=== PATIENT | male | born 1945 | race Caucasian/White ===

== ENCOUNTER → 2025-03-29 12:18 | Outpatient (REF) | payer OTHER, SELFPAY | LOC: RAD 12:18 | PROVIDERS: ATTENDING PHYSICIAN Student in an Organized Health Care Education/Training Program; FAMILY PHYSICIAN Family Medicine | DX: I35.0 Nonrheumatic aortic (valve) stenosis (principal) | CPT/HCPCS: 74174; 75572; Q9967 ==

== ENCOUNTER → 2025-04-13 13:16 | Outpatient (REF) | payer OTHER, SELFPAY | LOC: RAD 13:16 | PROVIDERS: ATTENDING PHYSICIAN Nurse Practitioner; FAMILY PHYSICIAN Family Medicine | DX: H53.9 Unspecified visual disturbance (principal) | CPT/HCPCS: 70450; 93880 ==

== ENCOUNTER 2025-04-15 11:06 | Day surgery (SDC) | payer OTHER, SELFPAY ==
[2025-04-15] VITALS (12 sets, daily range): BP systolic 110–141; BP diastolic 61–92; BMI 29.9
[2025-04-15] MEDS: NSS 283 ML IV (12:31)
--- NOTE | 2025-04-15 13:45 | ITS.CL.PN ---
Alumni Coordinator - Procedure Note
Procedure
Procedure Note:
CARDIAC CATHETERIZATION REPORT
Date of Procedure: 04/15/2025
Referring: Dr. Modesto Mills MD
Indication: severe symptomatic aortic valve stenosis pending TAVR with anginal symptoms
PROCEDURE(S)
1. bypass graft angiography
2. coronary angiography
ACCESS: 6F left radial artery (closure: radial band)
CATHETERS
1. 6F DIAMOND
2. 6F JR4
3. 6F JL4
4. 6F AR1
5. 6F AL1
MODERATE SEDATION: 40 minutes of moderate sedation was utilized. An independent infertility medical assistant was present to assist with and help manage the patient's level of consciousness and physiologic status.
CORONARY ANGIOGRAPHY
Dominance: Right
LM: large vessel with mild diffuse disease
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 The mid to distal vessel is filled via the BONILLA. The aneurysm is unchanged in appearance from recent angiography.
Ramus: moderate caliber branching vessel. There is a focal 50% stenosis in the superior arm that is stable from prior angiography. The inferior arm is supplied via the SVG with brisk competitive flow visualized.
LCx: Moderate caliber vessel giving rise to a moderate caliber branching OM1 and small OM 2. There are mild luminal irregularities only.
RCA: moderate caliber vessel giving rise to a small RPDA and several small RPL branches. There are serial ~40-50% focal stenoses in the mid-vessel that are unchanged from prior angiography 05/2024. There are otherwise trivial luminal irregularities
only.
BYPASS GRAFT ANGIOGRAPHY:
BONILLA-LAD: the BONILLA is taken as a pedicle and forms an anastomosis with the mid-LAD providing brisk antegrade flow to the apex.
SVG-diag: small graft that forms a patent anastomosis with the diagonal branch providing retrograde flow back to the site of the LAD aneurysm.
SVG-ramus: large graft that forms a patent anastomosis with the midportion of the inferior branch of the ramus providing brisk antegrade and retrograde flow.
RADIATION: dose 401 mGy; DAP 26.1 Gy*cm2; fluoroscopy time 8.0 min
CONCLUSIONS
1. Coronary angiography as described with patent bypass grafts and unchanged appearance of the RCA compared to 06/01 angiography.
2. There does not appear to be an obstructive coronary lesion that would explain the patient's anginal symptoms which are most likely attributable to his critical aortic valve stenosis
RECOMMENDATIONS
1. Aggressive secondary prevention of coronary artery disease
2. Proceed promptly with TAVR given critically elevated gradients and symptoms
Signed: Eusebio Del Valle MD, PhD
== END 2025-04-15 17:00 | disposition home or self-care (01) ==
LOC: CATH 11:06
PROVIDERS: ATTENDING PHYSICIAN Student in an Organized Health Care Education/Training Program; FAMILY PHYSICIAN Family Medicine; OTHER PHYSICIAN Internal Medicine Interventional Cardiology
DX: I35.0 Nonrheumatic aortic (valve) stenosis (principal); I25.10 Atherosclerotic heart disease of native coronary artery without angina pectoris; Z95.1 Presence of aortocoronary bypass graft; Z79.899 Other long term (current) drug therapy; I10 Essential (primary) hypertension; E78.5 Hyperlipidemia, unspecified
CPT/HCPCS: 99152; 99153; 93455; C1894; Q9967

== ENCOUNTER 2025-05-19 09:18 | Inpatient (IN) | payer OTHER, SELFPAY ==
[2025-05-12 12:19] VITALS: BMI 31.2
[2025-05-12 13:04] LABS: Urine Character Clear (Clear)
[2025-05-12 13:13] LABS: INR 0.93; PT 13.0 Sec (11.4-14.6)
[2025-05-12 13:16] LABS: ALT (SGPT) 37 U/L (0-50); AST (SGOT) 30 U/L (17-59); Albumin 4.8 g/dl (3.5-5.0); Alkaline Phosphatase 94 U/L (38-126); Blood Urea Nitrogen 14 mg/dl (9-20); Calcium 9.6 mg/dl (8.4-10.2); Carbon Dioxide 28 mmol/L (22-30); Chloride 104 mmol/L (98-107); Estimated Creatinine Clearance 67 ml/min; Glucose 100 mg/dl (70-99); Potassium 4.8 mmol/L (3.5-5.1); Sodium 138 mmol/L (135-145); Total Protein 7.2 g/dl (6.3-8.2); eGFR > 60.00
--- NOTE | 2025-05-12 13:45 | CM ---
Chart reviewed. Met with the patient in PAT. Reviewed preoperative and postoperative teaching, along with showering guidelines. Gave patient 2 soaps. Patient is independent of ADLS, lives alone in a 2 STH, 13 JOSSIE, 0 DME. Patient's daughter is
traveling in from [place] to stay with the patient. Patient's stepdaughter lives behind him. Patient may be outside driving radius for CT Transitional RN. Plan is for the patient to return home with CT Transitional RN or follow up phone call.
--- NOTE | 2025-05-12 13:54 | HPS.HSE ---
Family Physician
-
Family Physician: Mario Jefferson
Blanking Press Operator: Dr. Homer Mcfarland
Chief Complaint
-
pre-operative history and physical
History of Present Illness
Mr. Caballero is a 79-year-old man with past medical history significant for coronary artery disease status post CABGx3 (2019 Dr. Trudy Nielson at [place], [facility], rad-diag, rad-RPDA, 2019) with patent grafts 05/2024, COPD, hypertension, hyperlipidemia,
and aortic valve stenosis.He has been followed for moderate to severe aortic stenosis by Dr. Mcfarland and recently had repeat echocardiogram which demonstrated severely elevated gradients- PG/M/71, JAIDEN: 0.6, trivial AI. He has also had progression
of symptoms with noted dyspnea on exertion and chest tightness with extended walking or climbing flights of stairs. Symptoms are reminiscent of what he felt prior to CABG.��He had his CT TAVR completed on 03/29/2025 and cardiac cath with Dr. Maloney
Ivon on 04/15/2025 which was unchanged from his previous one. He was reviewed by the structural heart team and the decision was to proceed with TF-TAVR.
Medical History
Past Medical History
Past Medical History: Reports Asthma, CAD (h/o CABG x3 2018), HTN, Hypercholesterolemia, Valvular Disease (severe , trivial AI), Psychiatric (depression) and Other (glaucoma, crohn's disease)
Past Surgical History: Reports Cardiac (CABGx3 2018)
Social History
Tobacco: Former Smoker (quit 1999, 40 year history)
Alcohol: None
Drug: None
Personal:
Living: Alone
Employment: Retired
Family History
Family History: Not pertinent
Allergies / Home Medications
Allergies reflects when Allergies were last updated in [facility].
Home Medications with original date entered in [facility]
Allergy/Medication List:
Allergies:
Tetanus
Stiolto Respimat
Review of Systems
-
History Source: Patient
Constitutional: Reports Fatigue
EENT: Reports No Symptoms
Respiratory: Reports Cough and Other (asthma)
Cardiac: Reports Chest Pain; Denies Palpitations or Syncope
Abdomen/GI: Reports No Symptoms; Denies Abdominal Pain, Nausea, Vomiting or Diarrhea
: Reports No Symptoms; Denies Dysuria, Urgency or Bleeding
Musculoskeletal: Reports No Symptoms
Skin: Reports No Symptoms
Neurological: Reports No Symptoms
Endocrine: Reports No Symptoms
Hematologic/Lymphatic: Reports No Symptoms
Psych: Reports No Symptoms and Calm
Physical Exam
Physical Exam
General: Well Developed, Well Nourished, No Apparent Distress and Comfortable
HEENT: NormoCephalic, Moist mucous membranes and PERRLA
Respiratory: Clear; No Wheezes, Rales or Rhonchi
Cardiac: S1/S2, Regular Rhythm and Murmur (Grade III-IV/ JEANNIE); No Peripheral Edema
Breast: Deferred by me
GI: Soft, Non Tender, Non Distended and Normal Bowel Sounds
Rectal: Deferred by Provider
Genito-urinary: Deferred by me
Musculoskeletal: No Clubbing, No Cyanosis and Normal Gait & Station
Skin: Warm and Dry
Neuro: AO x 3 and No Motor Deficits
Psych: Calm and Intact Judgment/Insight
Laboratory Results
-
05/12/25 12:35
Laboratory Results
PT 13.0 Sec (11.4-14.6) 05/12/25 12:35
INR 0.93 05/12/25 12:35
Total Bilirubin 0.8 mg/dl (0.2-1.3) 05/12/25 12:35
AST 30 U/L (17-59) 05/12/25 12:35
ALT 37 U/L (0-50) 05/12/25 12:35
Alkaline Phosphatase 94 U/L (38-126) 05/12/25 12:35
Data Reviewed
-
Diagnostic Radiology: Report Reviewed by me
CT Scan: Report Reviewed by me and Discussed with Physician
Medical Tests (Nuc Med, Echo, EKG etc): Report Reviewed by me (SR, occasional PVCs, Left AFB)
Lab Data: Labs Reviewed by me
Old Records: Reviewed (consult notes)
Impression/Plan
-
IMPRESSION:
Severe, symptomatic aortic stenosis
PLAN:
- Proceed with TF-TAVR
- Continue all meds to evening prior, take only Clopidogrel the morning of procedure
- POD #1/#30 echocardiogram
- Cardiac rehab consult
[2025-05-12 14:10] LABS: Hematocrit 39.4 % (39.0-52.0); Hemoglobin 13.7 g/dL (13.0-18.0); Mean Corp Hgb Conc. 34.8 g/dL (33.0-37.0); Mean Corpuscular Volume 96.8 fL (80.0-94.0); Nucleated Red Blood Cells % 0 % (-); Platelet Count 233 10^3/uL (130-400); Red Cell Dist. Width 15.2 % (11.5-14.5)
[2025-05-12 14:11] LABS: Glycohemoglobin (HgbA1c) 5.5 % (4.0-5.6)
[2025-05-19] VITALS (13 sets, daily range): BP systolic 104–148; BP diastolic 56–81; BMI 31.2
[2025-05-19] MEDS: ANCEF 10 IV ×2 (12:35)
[2025-05-19 13:41] LABS: ACT-LR - POC 277 Seconds (116-155)
--- NOTE | 2025-05-19 13:51 | W.CVOR.SURPR ---
CVOR Surgeon Immed Pre Op
-
I have examined this patient prior to performance of the scheduled procedure.
The patient's condition is unchanged from the time of the dictated/written History and
Physical and the patient is able to undergo the scheduled procedure.
--- NOTE | 2025-05-19 13:51 | W.IMMPOSTOP ---
Surgical Immed Post Op Note
-
[id number]
STRUCTURAL HEART PROCEDURE NOTE:
Preoperative Dx:
Severe aortic stenosis (P/M: 97/71mmHg, JAIDEN 0.6, Staff Technologist 4.92)
CAD status post CABG x3 in 2019
Hypertension
Hyperlipidemia
Glaucoma
Asthma
Crohn's disease
Former smoker
Postoperative Dx:
Same
Acute on chronic combined systolic and diastolic CHF with elevated LVEDP (29 mmHg)
Procedures:
Left CFV access with ultrasound and fluoroscopic guidance, modified Seldinger technique, long 6 Cymro sheath placement
Left GOLD BLOWER access with tactile, ultrasound, and fluoroscopic guidance, modified Seldinger technique, limited angiography through micropuncture sheath, long 6 Cymro sheath placement
Placement of temporary RV pacing wire via left CFV access under fluoroscopic guidance with threshold testing
Placement of pigtail catheter in right coronary cusp with limited angiography/aortography x 2 to achieve ideal coplanar valve deployment angle
Right GOLD BLOWER access with tactile, ultrasound, and fluoroscopic guidance, modified Seldinger technique, limited angiography through micropuncture sheath, 8 Cymro dilator placement
Perclose suture placement x 2 into right GOLD BLOWER, 8 Cymro sheath placement
Placement of Garcia E sheath via right GOLD BLOWER access (systemic heparinization)
Wire purchase across the stenotic aortic valve (AL-1, soft-tipped straight, LVEDP assessment, extra-stiff with curved proximal end)
Pre-TAVR BAV with 20 mm true balloon
Right transfemoral TAVR with placement of 26 mm +2 SANDRA 3 Resilia valve
Completion aortography
Completion TTE (mean gradients between 4 and 5 mmHg, no AI or PVL)
Removal of valve delivery system and Garcia E sheath from right GOLD BLOWER with management with Perclose sutures x 2; manual pressure
Completion right iliofemoral angiography
Removal of temporary pacing wire
Removal of left GOLD BLOWER 6 Cymro sheath with management with 6 Cymro Angio-Seal x 1; manual pressure
Removal of left CFV 6 Cymro sheath with management with manual pressure
County Program Technician:
Dr. Eusebio Del Valle
Cardiac Surgeon:
Dr. Peter Stafford
Anesthesia:
MAC & local to B/L groins
Implants:
Perclose x 2 to right GOLD BLOWER
Angio-Seal x 1 to left GOLD BLOWER
Garcia [employer] 26 mm +2 SANDRA 3 Resilia valve; serial #[id number]
Cath Data:
Start: 1304hrs, Deploy: 1336hrs, End: 1346hrs
FT: 10.0, mGy: 277, DAP: 24.1, Contrast: 95
Post-TTE: mean gradient 5mmHg, no AI/PVL
Complications:
None
Condition:
Stable/guarded to recovery
--- NOTE | 2025-05-19 14:18 | ITS.CL.PN ---
Cutting Machine Fixer - Procedure Note
Procedure
Procedure Note:
TRANSCATHETER AORTIC VALVE REPLACEMENT REPORT
Date of Procedure: 05/19/2025
Referring: Dr. Modesto Mills MD
Indication: symptomatic severe aortic valve stenosis
Operators: Eusebio Del Valle MD, PhD (interventional cardiology); Dr. Peter Stafford MD (CT surgery)
Anesthesia: conscious sedation provided by the anesthesia staff
PROCEDURE: transfemoral, transcatheter aortic valve replacement with a Garcia Xavier 3 Ultra RESILIA 26 mm transcatheter aortic valve (+2cc extra volume)
ACCESS:
1. 6F left femoral vein (closure: manual hemostasis) - Ultrasound was utilized for vascular access. The vessel was visualized under ultrasound and noted to be patent. An image of the vessel was stored permanently in the patient's medical record.
Under direct ultrasound guidance, vascular access was obtained using a modified Seldinger technique and a 6 Welsh sheath was placed.
2. 6F left common femoral artery (closure: Angioseal) - Ultrasound was utilized for vascular access. The vessel was visualized under ultrasound and noted to be patent. An image of the vessel was stored permanently in the patient's medical record.
Under direct ultrasound guidance, vascular access was obtained using a modified Seldinger technique and a 6 Welsh sheath was placed.
3. 14 F right common femoral artery (closure: Perclose x2) - Ultrasound was utilized for vascular access. The vessel was visualized under ultrasound and noted to be patent. An image of the vessel was stored permanently in the patient's medical
record. Under direct ultrasound guidance, vascular access was obtained using a modified Seldinger technique and a 6 Welsh sheath was placed.
HEMODYNAMIC DATA
LVEDP 29 mmHg
PROCEDURE NARRATIVE:
The patient was prepped and draped in standard sterile fashion. Conscious sedation was provided by the anesthesia staff. 6F left femoral vein and left common femoral artery access was obtained with ultrasound guidance using micropuncture technique
with verification of appropriate arteriotomy location via hand injection angiography. A temporary venous pacing wire was advanced via the left femoral vein to the right ventricle under fluoroscopic guidance with appropriate capture verified. A 5F
pigtail catheter was advanced via the left common femoral artery and seated in the right coronary cusp. Angiography was performed to verify the co-planar angle.
8F right common femoral artery access was obtained with ultrasound guidance using micropuncture technique with verification of appropriate arteriotomy location via hand injection angiography. The arteriotomy was preclosed with two Perclose sutures
followed by replacement of the 8F sheath. Using an AL1 catheter, an Amplatz Extrastiff wire was placed in the descending thoracic aorta. The 8F sheath was removed and the 14 F Garcia E-sheath was inserted over the Extrastiff wire and into the
descending aorta. Heparin was given. The AL1 catheter was re-advanced through the E-sheath to the level of the ascending aorta. The Extrastiff wire was exchanged for a soft tipped straight wire which was used to cross the aortic valve and deposit
the AL1 in the LV apex. A J-wire was used to exchange the AL1 for a pigtail catheter in the LV and LVEDP was measured. An Amplatz Extrastiff wire with curved proximal end was advanced through the pigtail catheter and seated in the LV apex. ACT was
checked and confirmed to be >300 seconds.
A 20 mm True valvuloplasty balloon was advanced over the Extrastiff wire and into the aortic annulus. Valvuloplasty was performed under rapid pacing with good balloon expansion. The valvuloplasty balloon was removed.
The valve was brought to the table with orientation and deployment contrast volume verified. The valve was advanced over the Extrastiff wire and into the descending aorta. The balloon was withdrawn, and the valve was mounted on the balloon. The
valve was advanced over the aortic arch and into the aortic valve annulus. The pusher device was withdrawn. Low volume aortography confirmed valve positioning. The valve was deployed during rapid ventricular pacing. The balloon was walked back to
the descending aorta while leaving the wire in place. The patient was resuscitated by anesthesia with recovery of adequate blood pressure. Telemetry demonstrating normal sinus rhythm. Aortography demonstrated good valve positioning, adequate
coronary filling, and no aortic valve insufficiency. Echocardiography confirmed no aortic insufficiency. Mean valve gradient was 6 mmHg. The valve deployment system was removed.
The Garcia E sheath was removed, and hemostasis obtained with the two Perclose sutures. Protamine 40 mg was given. Aortoiliac angiography demonstrated no evidence of iliofemoral dissection/perforation and good runoff below the common femoral artery
bilaterally. The pacemaker and the pigtail catheter were removed. The left femoral artery sheath was removed using a 6F Angioseal. The left femoral venous sheath was removed with manual pressure.
RADIATION: dose to 77 mGy; DAP 24.1 Gy*cm2; fluoroscopy time 10.0 min
CONCLUSIONS
1. successful placement of a Garcia Xavier 3 Ultra RESILIA 26 mm transcatheter aortic valve (+2cc extra volume) via right transfemoral approach with no acute complications
2. acute on chronic systolic heart failure with elevated filling pressures (LVEDP = 29)
Copy to: Dr. Homer Mcfarland MD (oracle manager); Dr. Mario Jefferson DO (PCP)
Signed: Eusebio Del Valle MD, PhD
--- NOTE | 2025-05-19 15:25 | CM ---
Chart reviewed. Patient is in the OR today. Patient is independent of ADLS, lives alone in a 2 STH, 13 JOSSIE, 0 DME. Patient's daughter is from out of town and is here staying with the patient. Plan is for the patient to return home with CT
Transitional RN. CM to follow
--- NOTE | 2025-05-19 15:39 | PTCARENOTE ---
Rec'd Pt from lab engineer recovery, A,A+Ox3, denies pain, VSS, bilat femoral dsgs D+I.
[2025-05-19] MEDS: LIPITOR 40 MG PO (18:36)
--- NOTE | 2025-05-19 18:45 | PTCARENOTE ---
Pt assisted OOB to BR, voided in BR, jona well. His daughter is visiting. Bilat femoral dsgs remain D+I.
[2025-05-19] MEDS: ANCEF 5 IV (20:28)
[2025-05-19] MEDS: XALATAN OPHTHALMIC SOLUTION 1 DROP OPHTH (21:06)
--- NOTE | 2025-05-20 02:31 | PTCARENOTE ---
Assumed care at 1900. Patient denies any chest pain or shortness of breath. Bilateral groin sites soft and non-tender. Old drainage noted to right groin dressing. No new drainage noted. Patient in normal sinus rhythm on tele. VSS. Patient out of bed
to bathroom with assistance x1 as needed. Patient aware of plan of care. Call mckinney within reach.
[2025-05-20 03:23] VITALS: BP 124/69
[2025-05-20 03:58] VITALS: BMI 30.5
[2025-05-20 04:46] LABS: Blood Urea Nitrogen 15 mg/dl (9-20); Calcium 9.1 mg/dl (8.4-10.2); Carbon Dioxide 25 mmol/L (22-30); Chloride 108 mmol/L (98-107); Estimated Creatinine Clearance 74 ml/min; Glucose 128 mg/dl (70-99); Potassium 4.4 mmol/L (3.5-5.1); Sodium 139 mmol/L (135-145); eGFR > 60.00
[2025-05-20 04:53] LABS: Hemoglobin 13.3 g/dL (13.0-18.0); Platelet Count 169 10^3/uL (130-400)
[2025-05-20 05:51] VITALS: BMI 30.5
[2025-05-20 06:30] LABS: Hematocrit 37.4 % (39.0-52.0)
[2025-05-20 06:31] LABS: Mean Corp Hgb Conc. 35.3 g/dL (33.0-37.0); Mean Corpuscular Volume 94.4 fL (80.0-94.0); Red Cell Dist. Width 14.5 % (11.5-14.5)
--- NOTE | 2025-05-20 06:31 | PTCARENOTE ---
Right groin dressing changed; no active bleeding assessed, no hematoma. Morning EKG completed and shown to Diego Bland, no new orders.
[2025-05-20 07:07] VITALS: BP 127/66
[2025-05-20] MEDS: FLOVENT 44 MCG INHALER 2 PUFF INH (07:58)
[2025-05-20] MEDS: PLAVIX 75 MG PO (08:14)
[2025-05-20] MEDS: ZESTRIL 40 MG PO (08:14)
[2025-05-20] MEDS: NORVASC 10 MG PO (08:15)
--- NOTE | 2025-05-20 08:23 | W.PN.CT ---
Today's Communication / Plan
-
-pod #1
-no issues overnight
-nsr, pvcs. No erika or pauses
-Echo today
-possible d/c
Assessment / Plan
-
- Severe symptomatic - s/p Pre-TAVR BAV with 20 mm true balloon, followed by Right transfemoral TAVR with placement of 26 mm +2 SANDRA 3 Resilia valve on 05/19/25, pod #1
- Post-TTE: mean gradient 5mmHg, no AI/PVL
- CAD status post CABG x3 in 2019
- Hypertension
- Hyperlipidemia
- Glaucoma
- Asthma
- Crohn's disease
- Former smoker
Discussed patient care with: Nursing and Care Team
Subjective
-
Date of Service: May 20, 2025
Objective Data
-
Lab Results
05/20/25 03:30
05/20/25 03:30
PT 13.0 Sec (11.4-14.6) 05/12/25 12:35
INR 0.93 05/12/25 12:35
Vital Signs
Vital Signs
Temp Pulse Resp BP Pulse Ox
97.8 F 65 16 127/66 95
05/20/25 07:06 05/20/25 08:15 05/20/25 08:03 05/20/25 08:15 05/20/25 08:03
CT Intake/Output/Weight
05/19/25 05/20/25 05/20/25
18:59 06:59 18:59
Intake Total 1330 / 2170 840 / 2170
Output Total 200 / 200
Balance 0 / 1970 640 / 1970
SaO2: 95
Physical Exam
-
General: Awake, Oriented and AOx3
Cardiovascular: Regular rate & rhythm, No Murmurs and No Rub
Respiratory: Clear
Incision: Clean, Dry and Intact (soft, nontender, no hematoma b/l)
Extremities: No Edema
Data Reviewed
-
Lab Results: Results Reviewed
Medications: Active Meds Reviewed
Chest X-Ray: Report Reviewed and Image Reviewed
ECG: Report Reviewed and Image Reviewed
--- NOTE | 2025-05-20 09:59 | PTCARENOTE ---
received patient this am in bed, bilateral groins intact, distal pulse weak but palpable. patient is up, ambulating in room , jona. well. monitor shows NSR, VSS. patient is hoping to go home today.
[2025-05-20 11:13] VITALS: BP 112/74
--- NOTE | 2025-05-20 11:29 | W.DCSUMMARY ---
Discharge Summary
Discharge Data
Date of Admission: 05/19/25
Date of Discharge: 05/20/25
-
Pending Results: No
Hospital Course
Primary care physician: Mario Jefferson
Outpatient pusher operator: Homer Mcfarland
Inpatient consultants: [facility]
Procedures:
1. Right transfemoral TAVR with placement of 26 mm +2 SANDRA 3 Resilia valve, 05/19/25
Primary Diagnosis:
1. Severe aortic stenosis (P/M: 97/71mmHg, JAIDEN 0.6, Paper Final Inspector 4.92).
Secondary Diagnoses:
1. Acute on chronic combined systolic and diastolic CHF with elevated LVEDP (29 mmHg).
2. CAD status post CABG x3 in 2019.
3. Hypertension.
4. Hyperlipidemia.
5. Glaucoma.
6. Asthma.
7. Crohn's disease.
8. Former smoker.
HPI: 79-year-old man with past medical history significant for coronary artery disease status post CABGx3 ([address] Dr. Trudy Nielson at [place], BONILLA-LAD, rad-diag, rad-RPDA, 2019) with patent grafts 05/2024, COPD, hypertension, hyperlipidemia, and aortic
valve stenosis. He has been followed for moderate to severe aortic stenosis by Dr. Homer Mcfarland and recently had repeat echocardiogram which demonstrated severely elevated gradients- PG/M/71, JAIDEN: 0.6, trivial AI. He has also had progression of
symptoms with noted dyspnea on exertion and chest tightness with extended walking or climbing flights of stairs. Symptoms are reminiscent of what he felt prior to CABG.��He had his CT TAVR completed on 03/29/2025 and cardiac cath with Dr. Post
Ivon on 04/15/2025 which was unchanged from his previous one. He was reviewed by the structural heart team and the decision was to proceed with TF-TAVR.
Hospital course: Patient was admitted to [facility] 05/19/25, where he underwent right transfemoral TAVR with placement of 26 mm +2 SANDRA 3 Resilia valve. At the end of the procedure, TTE demonstrated good placement of the aortic valve with a mean
gradient ranging from 4 to 5 mmHg, without any aortic insufficiency or paravalvular leak. At the end of the procedure, the patient was transferred to the IVU. Post-procedure ECG showed normal sinus rhythm with incomplete right bundle branch block
and left anterior fascicular block. His home beta dale was held.
The patient did well overnight. In the morning, his vital signs were stable and his groins were soft. ECG showed normal sinus rhythm and a bifascicular block. His previous ECGs were reviewed by the pusher operator, who felt that the patient did not
need to be placed on a monitor at the time of discharge. He also was agreeable to the patient resuming his home beta-dale at the time of discharge.
Echocardiogram showed normal biventricular size and function, LVEF 56% and aortic valve with mean gradient 12mmHg, without significant regurgitation.
Home medication changes: None
Discharge Plan
-
Patient Disposition: Home (Routine Discharge)
Discharge Diagnosis/Procedures: TF-TAVR (05/19/25)
Condition: Good
Diet: Low Cholesterol and 2 Gram Sodium
Activity: As tolerated
Driving Restrictions: No driving for 1 week
Bathing Restrictions: OK to Shower
Others Tests: 30 Day Follow Up Echocardiogram:06/21/2025 at 1:20pm in Dr. Mcfarland's office.
Other Services: Cardiac Rehab
Wound Care: Please do not apply lotions, creams or powders to groin areas. Please monitor for increased swelling, redness, pain or drainage. Notify your doctor if any occur.
Specialty Instructions: Weigh Daily- Call MD for wt gain/loss 3 lbs overnight/5 lbs in 1 week
Activity Restrictions/Additional Instructions:
Please call [facility] for Cardiac Rehab [phone]
Referrals:
CT Transitional Care Nurse [Outside]
Referral Note: The Cardiothoracic Transitional Care Nurse will call you to set up a visit in 1-2 days.
Mario Jefferson, DO [Family Provider]
Cortney Huertas CRNP [Specified Professional Personl, Cardiology] - 06/27/25 11:40 am
Prescriptions:
Continued
amlodipine-benazepril 10-40 mg Capsule
1 cap PO DAILY
albuterol sulfate 90 mcg/actuation Hfa Aerosol Inhaler
1 inh INHALATION ONCE PRN (Reason: sob)
atorvastatin 40 mg Tablet
40 mg PO QPM
clopidogrel [Plavix] 75 mg Tablet
75 mg PO DAILY
latanoprost 0.005 % Drops
1 drp OPHTHALMIC (EYE) HS
mesalamine 1.2 gram Tablet,Delayed Release (Dr/Ec)
1.2 g PO BID
metoprolol succinate 100 mg Tablet Extended Release 24 Hr
100 mg PO QPM
fluticasone furoate [Arnuity Ellipta] 100 mcg/actuation Blister With Device
1 inh INHALATION DAILY
multivitamin Tablet
1 tab PO DAILY
Discharge Orders:
Discharge Patient (As Directed); Ordered 05/20/25
Ordered By: Carmencita Mitchell
Discharge Date and Time
Print Language: KAZAKH
[2025-05-20 11:43] VITALS: BP 158/110
--- NOTE | 2025-05-20 11:43 | CM ---
Chart reviewed. Patient is independent of ADLS, lives alone in a 2 STH, 13 JOSSIE, 0 DME. Patient's daughter at bedside. Plan is for the patient to return home with CT Transitional RN. CM to follow
[2025-05-20 11:54] VITALS: BP 140/70
[2025-05-20 13:35] VITALS: BP 140/70; BP 158/110; PULSE 77; O2SAT 96; O2SAT 97
--- NOTE | 2025-05-20 15:13 | PTCARENOTE ---
D/C instructions given to patient and daughter, both verbalizes understanding. INT x 2 D/C'd, telemetry D/C'd, personal belongings packed and sent home with patient. D/C to home via wc accompanied by staff.
--- NOTE | 2025-05-20 20:14 | W.PN.CD ---
Today's Communication / Plan
-
discharge
Impression / Plan
-
-pod #1
-no issues overnight
-nsr, pvcs. No erika or pauses
-Echo today
-possible d/c
Assessment / Plan
-
79M with severe (bordering on critical) POD1 s/p transfemoral TAVR with S3UR 26 mm valve +2 cc extra volume.
Overnight did well
Feels well with ambulation
Groin soft
VSS
Tele without block
EKG stable LAFB
Labs stable
Echo with stable valve function, gradient:
SUMMARY
1. Normal biventricular size and function without regional wall motion abnormalities.
2. LVEF is 56% by Marks's biplane method of discs. Mild concentric LVH.
3. S/p 26 mm Garcia SANDRA TAVR. Mean gradient 12 mmHg. No significant regurgitation.
4. Heavy mitral annular calcification with mild mitral regurgitation.
5. Compared to prior from May 19, 2025, no significant change.
Plan:
discharge per protocol on ASA daily
1 month follow up echo
cardiology follow up
Physical Exam
Vital Signs/Labs
Vital Signs
Temp Pulse Resp BP Pulse Ox
36.6 C 75 20 140/70 98
05/20/25 11:22 05/20/25 14:00 05/20/25 11:22 05/20/25 11:54 05/20/25 11:22
05/19/25 05/20/25 05/21/25
06:59 06:59 06:59
Actual Weight 90.9 kg
05/20/25 03:30
05/20/25 03:30
PT 13.0 Sec (11.4-14.6) 05/12/25 12:35
INR 0.93 09/04/25 12:35
05/12/25
12:35
Hos-M-Yndlfkxxehe Pept 414
Physical Exam
Constitutional: Comfortable
Cardiovascular: Rhythm & rate is regular
Respiratory: Respiratory effort normal
Neuro/Psych: AO x 3
Data Reviewed
-
Date of Service: May 20, 2025
Medical Decision Making: Reviewed Test Results
EKG: Tracing Personally Visualized and interpreted
Echo: Tracing Personally Visualized and interpreted
Labs: Labs Reviewed by me
== END 2025-05-20 15:16 | disposition home or self-care (01) | DRG 266 ==
LOC: IVU 09:18
PROVIDERS: Physician Assistant Medical; ADMITTING PHYSICIAN Thoracic Surgery (Cardiothoracic Vascular Surgery); CONSULT PHYSICIAN Student in an Organized Health Care Education/Training Program; FAMILY PHYSICIAN Family Medicine
PROC: 02RF38Z Replacement of Aortic Valve with Zooplastic Tissue, Percutaneous Approach (ICD-10-PCS; 2025-05-19)
DX: I35.0 Nonrheumatic aortic (valve) stenosis (principal); I50.43 Acute on chronic combined systolic (congestive) and diastolic (congestive) heart failure; K50.90 Crohn's disease, unspecified, without complications; I45.2 Bifascicular block; I25.10 Atherosclerotic heart disease of native coronary artery without angina pectoris; I11.0 Hypertensive heart disease with heart failure; E78.00 Pure hypercholesterolemia, unspecified; H40.9 Unspecified glaucoma; J44.89 Other specified chronic obstructive pulmonary disease; Z95.1 Presence of aortocoronary bypass graft; Z87.891 Personal history of nicotine dependence
CPT/HCPCS: 33361; 36415; 71045; 71046; 80048; 80053; 81003; 82248; 83036; 83880; 85025; 85027; 85347; 85610; 86850; 86900; 86901; 86920; 86922; 87070; 93005; 93308; 93321; 93325; 94640; C1760; C1769; C1894; Q9967